=== PATIENT | female | born 1985 | race Caucasian/White ===

== ENCOUNTER 2016-09-04 10:41 | Emergency (ER) | payer MEDICAID ==
[~2016-09-04] VITALS: Ht 152.4 cm; Wt 102.0 kg
[~2016-09-04 10:41] MED LIST: CALC300T4 PO; CEPH-443 PO; HC30CR25 TOP; IBUP-1542 PO
[2016-09-04 11:03] VITALS: Ht 152.4 cm; Wt 102.0 kg
--- NOTE | 2016-09-04 12:07 | RADRPT ---
PROCEDURE: Chest Radiograph. CLINICAL INDICATION: Cough TECHNIQUE: Single frontal chest radiograph. COMPARISON: Chest radiograph 02/01/2014 FINDINGS: The cardiomediastinal silhouette is within normal limits. No infiltrate or effusion is seen. Th e bones are intact. IMPRESSION: 1. Unremarkable chest radiograph. RPTAT: KK .Keith Shepard MD, MD Date Time Electronically viewed and signed by .Keith Shepard MD, on 09/04/2016 12:06 .B/
[2016-09-04] MEDS ORDERED: CEPH-443 PO (12:38)
[2016-09-04] MEDS ORDERED: IBUP-1542 PO (12:38)
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
== END 2016-09-04 12:45 | disposition home or self-care (01) ==
LOC: FTE 10:41
DX: T22.011A Burn of unspecified degree of right forearm, initial encounter (principal); X58.XXXA Exposure to other specified factors, initial encounter; Y92.9 Unspecified place or not applicable
CPT/HCPCS: 71010; Z7502

== ENCOUNTER 2016-11-27 17:46 | Emergency (ER) | payer MEDICAID ==
[~2016-11-27] VITALS: Wt 103.0 kg
[2016-11-27] MEDS ORDERED: ACETAMINOPHEN 500 MG TAB PO STA (18:47)
[2016-11-27] MEDS ORDERED: IBUPROFEN 600 MG TAB PO ONE (19:00)
--- NOTE | 2016-11-27 19:24 | RADRPT ---
PROCEDURE: XR Chest. CLINICAL INDICATION: Cough . TECHNIQUE: Single frontal chest x-ray. COMPARISON: 09/04/2016 FINDINGS: The lungs are clear of acute infiltrates, edema, effusions, or masses.. The cardiomediastinal silho uette is unremarkable. The osseous structures are intact. IMPRESSION: No acute cardiopulmonary disease. RPTAT: RR .Arturo Martinez MD, MD Date Time Electronically viewed and signed by .Arturo Martinez MD, on 11/27/2016 19:24 .L/
[2016-11-27] MEDS ORDERED: SODI30SP2 NS (20:47)
[2016-11-27] MEDS ORDERED: LORA10TA3 PO (20:47)
[2016-11-27] MEDS ORDERED: ACET325T33 PO (20:47)
[2016-11-27] MEDS ORDERED: IBUP400T22 PO (20:47)
--- NOTE | 2016-11-27 20:53 | ERD ---
ER Documentation Chief Complaint Date/Time DATE: 11/27/16 TIME: 20:49 Chief Complaint COUGH, CONGESTION, FEVER, BODYACHES ONSET 2 DAYS HPI This is a 31-year-old female presenting to emergency department with cough, body ache, fever, nasal congestion 2 days. Patient states she has dry nonproductive cough. Patient has tactile fevers at home. Did not check her temperature with thermometer. Patient has generalized body aches. Complains of nasal congestion, rhinitis and rhinorrhea. No sore throat or difficulty swallowing. No vomiting or diarrhea. No abdominal pain. No chest pain, shortness breath or difficulty breathing. No heart palpitations. No sick contacts. ROS All systems reviewed and are negative except as per history of present illness. Medications Home Meds Active Scripts Loratadine* (Loratadine*) 10 Mg Tablet, 10 MG PO DAILY, #30 TAB Prov:ILDEFONSO CAVAZOS NP 11/27/16 Sodium Chloride (Saline Nasal [place]) 30 Ml [place], 30 ML NS BID, #1 SPRAY Prov:ILDEFONSO CAVAZOS NP 11/27/16 Ibuprofen* (Motrin*) 400 Mg Tab, 400 MG PO Q6, #30 TAB Prov:ILDEFONSO CAVAZOS NP 11/27/16 Acetaminophen* (Tylenol*) 325 Mg Tablet, 1 TAB PO Q6 Y for PAIN AND OR ELEVATED TEMP, #20 TAB Prov:ILDEFONSO CAVAZOS NP 11/27/16 Ibuprofen* (Motrin*) 600 Mg Tab, 600 MG PO Q6, #30 TAB Prov:BEATRIZ MCCORMICK PA-C 10/28/16 Ibuprofen* (Motrin*) 600 Mg Tab, 600 MG PO Q6, #30 TAB Prov:DANUTA FARMER C 09/04/16 Cephalexin* (Keflex*) 500 Mg Capsule, 500 MG PO QID for 7 Days, CAP Prov:DARIAN,DANUTA C 09/04/16 Hydrocortisone* Topical (Hydrocortisone* Topical) 2.5%-28.3 Gm Cream..g., 1 APPLIC TOP BID for 14 Days, #1 TUB Prov:RUFUS SWANSON NP 12/26/15 Calcium Carbonate* (Tums X-Str) 300 Mg Tab.chew, 300 MG PO TID Y for GASTROINTESTINAL UPSET, #30 TAB.CHEW Prov:RUFUS SWANSON NP 12/26/15 Ibuprofen* (Motrin*) 600 Mg Tab, 600 MG PO Q6H Y for PAIN AND OR ELEVATED TEMP, #30 TAB Prov:TRISTEN RICH FREEMAN JoseCarol ARCHITECTURAL PRACTICE MANAGER 09/04/15 Cephalexin* (Keflex*) 500 Mg Capsule, 500 MG PO QID for 10 Days, CAP Prov:TRISTEN RICHCarol ARCHITECTURAL PRACTICE MANAGER 09/04/15 Allergies Allergies: Coded Allergies: No Known Drug Allergy (Verified Allergy, Mild, 11/27/16) PMhx/Soc Medical and Surgical Hx: pt denies Medical Hx History of Surgery: Yes () Anesthesia Reaction: No Hx Neurological Disorder: No Hx Respiratory Disorders: No Hx Cardiac Disorders: No Hx Psychiatric Problems: No Hx Miscellaneous Medical Probl: Yes (arthritis) Hx Alcohol Use: No Hx Substance Use: No Hx Tobacco Use: No Smoking Status: Never smoker Physical Exam Vitals Vital Signs Date Time Temp Pulse Resp B/P Pulse Ox O2 Delivery O2 Flow Rate FiO2 11/27/16 17:48 100.6 107 18 133/74 98 Physical Exam Const: No acute distress, alert, Temp 100.6F with heart rate 107 bpm. Oxygen saturation 98% on room air with 18 respirations per minute. Head: Atraumatic Eyes: Normal Conjunctiva ENT: Normal External Ears, Nose and Mouth. No erythema or exudates posterior pharynx. TMs normal bilaterally. Neck: Full range of motion..~ No meningismus. Resp: Clear to auscultation bilaterally . No wheezing, rhonchi or crackles. No stridor or labored breathing. No intercostal retractions. Cardio: Regular rate and rhythm, no murmurs Abd: Soft, non tender, non distended. Normal bowel sounds Skin: No petechiae or rashes Back: No midline or flank tenderness Ext: No cyanosis, or edema Neur: Awake and alert Psych: Normal Mood and Affect Results 24 hrs Current Medications Medications (Trade) Dose Ordered Sig/Dustin Route PRN Reason Start Time Stop Time Status Last Admin Dose Admin Acetaminophen (Tylenol Tab) 500 mg ONCE STAT PO 11/27/16 18:47 11/27/16 18:49 DC 11/27/16 19:09 Ibuprofen (Motrin) 600 mg ONCE ONCE PO 11/27/16 19:00 11/27/16 19:01 DC 11/27/16 19:09 Procedures/MDM MDM: This is a 31-year-old female presenting to emergency department with cough , body aches, fever, nasal congestion 2 days. Cough is dry nonproductive. Patient has temp of 100.6F and heart rate 107 bpm upon arrival to ED. Patient' s oxygen saturation 98% on room air with respirations 18/min. No signs or symptoms of respiratory distress. Lung exam and ENT exam are unremarkable. Patient given Tylenol and Motrin p.o. while in the ED with decrease in temperature. Chest x-ray was performed and read by the radiologist as no acute findings. Influenza a and B swab is negative. Patient remains alert and oriented throughout ED visit. Appears in no acute distress. Vital signs remained stable. Low suspicion for pneumonia, pleural effusion, pneumothorax or acute [place]. Differential diagnosis includes but not limited to URI, influenza, otitis media , otitis externa, asthma exacerbation, croup, bronchitis, bronchiolitis and costochondritis. Patient is appropriate for outpatient management and will be given prescription for ibuprofen,tylenol, saline nasal spray and loratadine. Instructed patient to follow-up with primary care provider in the next 2-3 days for reassessment and additional management. Return to ED for any high fever, chest pain, difficulty breathing, shortness breath, wheezing, vomiting, diarrhea, abdominal pain or any new or worsening symptoms. Patient verbalizes understanding. All questions answered at discharge. Japanese translation use during this encounter. Disclaimer: Inadvertent spelling and grammatical errors are likely due to EHR/ dictation software use and do not reflect on the overall quality of patient care. Also, please note that the electronic time recorded on this note does not necessarily reflect the actual time of the patient encounter. Departure Diagnosis: Primary Impression: Upper respiratory infection URI type: unspecified viral URI Qualified Code: J06.9 - Viral upper respiratory tract infection Condition: Stable Patient Instructions: Uri, Viral, No Abx (Adult) Referrals: COMM[facility]ITY [facility] YOU HAVE RECEIVED A MEDICAL SCREENING EXAM AND THE RESULTS INDICATE THAT YOU DO NOT HAVE A CONDITION THAT REQUIRES URGENT TREATMENT IN THE EMERGENCY DEPARTMENT. FURTHER EVALUATION AND TREATMENT OF YOUR CONDITION CAN WAIT UNTIL YOU ARE SEEN IN YOUR DOCTORS OFFICE WITHIN THE NEXT 1-2 DAYS. IT IS YOUR RESPONSIBILITY TO MAKE AN APPOINTMENT FOR FOLOW-UP CARE. IF YOU HAVE A PRIMARY DOCTOR --you should call your primary doctor and schedule an appointment IF YOU DO NOT HAVE A PRIMARY DOCTOR YOU CAN CALL OUR PHYSICIAN REFERRAL HOTLINE AT IF YOU CAN NOT AFFORD TO SEE A PHYSICIAN YOU CAN CHOSE FROM THE FOLLOWING [facility] [address] [facility] [address] [facility] [address] [facility] [address] [facility] [address] [facility] [address] [facility]. [facility] YOU HAVE RECEIVED A MEDICAL SCREENING EXAM AND THE RESULTS INDICATE THAT YOU DO NOT HAVE A CONDITION THAT REQUIRES URGENT TREATMENT IN THE EMERGENCY DEPARTMENT. FURTHER EVALUATION AND TREATMENT OF YOUR CONDITION CAN WAIT UNTIL YOU ARE SEEN IN YOUR DOCTORS OFFICE WITHIN THE NEXT 1-2 DAYS. IT IS YOUR RESPONSIBILITY TO MAKE AN APPOINTMENT FOR FOLOW-UP CARE. IF YOU HAVE A PRIMARY DOCTOR --you should call your primary doctor and schedule and appointment IF YOU DO NOT HAVE A PRIMARY DOCTOR YOU CAN CALL OUR PHYSICIAN REFERRAL HOTLINE AT . IF YOU CAN NOT AFFORD TO SEE A PHYSICIAN YOU CAN CHOSE FROM THE FOLLOWING [facility] INSTITUTIONS: [facility] [address] [place] [address] [facility] [address] [place] [address] LOCATED WITHIN [facility] + [facility] [address] [place] [address] Additional Instructions: Call your primary care doctor TOMORROW for an appointment during the next 2-3 days.See the doctor sooner or return here if your condition worsens before your appointment time. Return to ED for any high fever, chest pain, difficulty breathing, shortness breath, wheezing, vomiting, diarrhea, abdominal pain or any new or worsening symptoms. ILDEFONSO CAVAZOS NP Nov 27, 2016 20:53
[2016-11-27 21:43] VITALS: BP 122/78; PULSE 89; RESP 20; TEMP 98.9
== END 2016-11-27 21:44 | disposition home or self-care (01) ==
LOC: FTE 17:46
DX: J06.9 Acute upper respiratory infection, unspecified (principal)
CPT/HCPCS: 71010; 87400; Z7502; Z7610

== ENCOUNTER 2017-02-19 08:04 | Emergency (ER) | payer MEDICAID ==
[~2017-02-19] VITALS: Ht 160 cm; Wt 101.0 kg
[~2017-02-19 08:04] MED LIST changes: +ACET325T33 PO; +IBUP400T22 PO; +LORA10TA3 PO; +SODI30SP2 NS
[2017-02-19 08:07] VITALS: Ht 160 cm; Wt 101.0 kg
--- NOTE | 2017-02-19 08:51 | RADRPT ---
PROCEDURE: XR Chest. CLINICAL INDICATION: Cough TECHNIQUE: Single frontal view of the chest was obtained COMPARISON: CR CHEST 09/04/2016 FINDINGS: The heart and mediastinum are within normal limits. The lungs are clear. There is no pleural effusion or pneumothorax. RPTAT: AA IMPRESSION: No acute disease. .Scout Gardner MD, MD Date Time Electronically viewed and signed by .Scout Gardner MD, on 02/19/2017 08:51 .S/
--- NOTE | 2017-02-19 09:09 | ERD ---
ER Documentation Chief Complaint Chief Complaint sore throat and b/l ear pain x 1 week HPI This is a 31-year-old female presents to the ER with a sore throat and bilateral ear pain over the last 2 weeks. Patient also has productive cough, which is worse at night. She denies any chest pain or shortness of breath. Patient states that sore throat is worse when she swallows anything, she does not have any difficulty in swallowing. Has felt warm, however does not have a thermometer at home. She denies any chills. She denies any hemoptysis. There are no sick contacts at home. ROS 12 point review of systems was done, all negative except per HPI. Medications Home Meds Active Scripts Ibuprofen* (Motrin*) 600 Mg Tab, 600 MG PO Q6, #30 TAB Prov:DANUTA FARMER 02/19/17 Penicillin V Potassium* (Penicillin V K*) 500 Mg Tab, 500 MG PO BID for 10 Days , TAB Prov:DANUTA FARMER 02/19/17 Loratadine* (Loratadine*) 10 Mg Tablet, 10 MG PO DAILY, #30 TAB Prov:ILDEFONSO CAVAZOS NP 11/27/16 Sodium Chloride (Saline Nasal [place]) 30 Ml [place], 30 ML NS BID, #1 SPRAY Prov:ILDEFONSO CAVAZOS NP 11/27/16 Ibuprofen* (Motrin*) 400 Mg Tab, 400 MG PO Q6, #30 TAB Prov:ILDEFONSO CAVAZOS NP 11/27/16 Acetaminophen* (Tylenol*) 325 Mg Tablet, 1 TAB PO Q6 Y for PAIN AND OR ELEVATED TEMP, #20 TAB Prov:ILDEFONSO CAVAZOS NP 11/27/16 Ibuprofen* (Motrin*) 600 Mg Tab, 600 MG PO Q6, #30 TAB Prov:BEATRIZ MCCORMICK PA-C 10/28/16 Ibuprofen* (Motrin*) 600 Mg Tab, 600 MG PO Q6, #30 TAB Prov:DANUTA FARMER 09/04/16 Cephalexin* (Keflex*) 500 Mg Capsule, 500 MG PO QID for 7 Days, CAP Prov:DANUTA FARMER 09/04/16 Hydrocortisone* Topical (Hydrocortisone* Topical) 2.5%-28.3 Gm Cream..g., 1 APPLIC TOP BID for 14 Days, #1 TUB Prov:RUFUS SWANSON. DECK ENGINE OPERATOR 12/26/15 Calcium Carbonate* (Tums X-Str) 300 Mg Tab.chew, 300 MG PO TID Y for GASTROINTESTINAL UPSET, #30 TAB.CHEW Prov:RUFUS SWANSON. DECK ENGINE OPERATOR 12/26/15 Ibuprofen* (Motrin*) 600 Mg Tab, 600 MG PO Q6H Y for PAIN AND OR ELEVATED TEMP, #30 TAB Prov:DAYATRISTEN BERUMEN DECK ENGINE OPERATOR 09/04/15 Cephalexin* (Keflex*) 500 Mg Capsule, 500 MG PO QID for 10 Days, CAP Prov:LAYLATRISTEN. DECK ENGINE OPERATOR 09/04/15 Allergies Allergies: Coded Allergies: No Known Drug Allergy (Verified Allergy, Mild, 02/19/17) PMhx/Soc History of Surgery: Yes () Anesthesia Reaction: No Hx Neurological Disorder: No Hx Respiratory Disorders: No Hx Cardiac Disorders: No Hx Psychiatric Problems: No Hx Miscellaneous Medical Probl: Yes (arthritis) Hx Alcohol Use: No Hx Substance Use: No Hx Tobacco Use: No Smoking Status: Never smoker Physical Exam Vitals Vital Signs Date Time Temp Pulse Resp B/P Pulse Ox O2 Delivery O2 Flow Rate FiO2 02/19/17 08:07 97.8 86 18 118/72 98 Physical Exam GENERAL: The patient is well-developed, well-nourished, in no acute distress. NECK: Cervical spine is non tender with no step off. Supple, no nuchal rigidity HEENT: Atraumatic. Pupils equal, round and reactive to light. Extraocular muscles are grossly intact. Conjunctivae pink, no discharge. Bilateral tympanic membranes are clear with no evidence of erythema, effusion or dulling of the light reflex. Tonsilar erythema with no exudates or uvular deviation. Clear rhinorrhea. RESPIRATORY: Clear to auscultation bilaterally. There are no rales, wheezes or rhonchi. HEART: Regular rate and rhythm. No murmurs, clicks, rubs or gallops. EXTREMITIES: No clubbing or cyanosis. Full range of motion. Grossly neurovascularly intact. NEUROLOGIC: Alert and oriented. Cranial nerves II through XII are intact. SKIN: There is no rash. The skin is warm and dry. Results 24 hrs [place] [id number] Radiology Main Line: [phone] DIAGNOSTIC IMAGING REPORT Patient: RAMONA GUAN : 1985 Age: 31 Sex: F MR #: [id number] DOS: 02/19/17 0000 Ordering MD: DANUTA FARMER PA-C Location: [facility] Room/Bed: PROCEDURE: XR Chest. CLINICAL INDICATION: Cough TECHNIQUE: Single frontal view of the chest was obtained COMPARISON: CR CHEST 09/04/2016 FINDINGS: The heart and mediastinum are within normal limits. The lungs are clear. There is no pleural effusion or pneumothorax. RPTAT: AA IMPRESSION: No acute disease. .Scout Gardner MD, MD Date Time Electronically viewed and signed by .Scout Gardner MD, MD on 02/19/2017 08: 51 .S/ CC: DANUTA FARMER Procedures/MDM This is a 31-year-old female presents to the ER with sore throat, bilateral ear pain and cough for the last 2 weeks. Patient does have strep pharyngitis, she will be treated with penicillin for 10 days. Suspicion for retropharyngeal or peritonsillar abscess is low, she does not have any uvular deviation or kissing tonsils. Patient is afebrile and well-appearing in the ER. She is able to tolerate p.o. fluids, she stable for outpatient follow-up. Patient is to follow -up with her primary care doctor within 1-2 days or return to ER sooner if symptoms worsen. Medical decision making shared with the patient she understands and agrees with plan. Departure Diagnosis: Primary Impression: Strep throat Condition: Stable DANUTA FARMER Feb 19, 2017 09:09
[2017-02-19] MEDS ORDERED: PENI500T PO (09:50)
[2017-02-19] MEDS ORDERED: IBUP-1542 PO (09:51)
== END 2017-02-19 10:07 | disposition home or self-care (01) ==
LOC: FTE 08:04
DX: J02.0 Streptococcal pharyngitis (principal); R05 Cough
CPT/HCPCS: 71010; 87880; Z7502

== ENCOUNTER 2017-12-30 17:18 | Emergency (ER) | END 2017-12-30 19:11 | disposition home or self-care (01) ==

== ENCOUNTER 2018-09-25 19:20 | Emergency (ER) | payer MEDICAID ==
[~2018-09-25] VITALS: Ht 152.4 cm; Wt 98.7 kg
[~2018-09-25 19:20] MED LIST changes: +BEN25 PO; +IBUP-1561 PO; -IBUP400T22 PO; +PENI500T PO; +PRED20TA PO
[2018-09-25 19:23] VITALS: Ht 152.4 cm; Wt 98.7 kg
--- NOTE | 2018-09-25 21:17 | ERD ---
ER Documentation Chief Complaint Chief Complaint abdominal pain x 2 weeks HPI History and physical exam and plan of care discussion performed via educational interpreter services This is a 33-year-old female patient presents emergency room with complaint of epigastric pain that radiates down the front of her abdomen into her bilateral pelvis x1 week. Denies any trauma or injury. No nausea, no vomiting, no constipation, no diarrhea last BM today. Denies dysuria. Denies pain related to eating, states pain is cramping pain. States walking makes pain worse resting makes pain better. Patient has history of arthritis takes Naprosyn. Pt denies any pain at time of exam. States pain is intermittent. ROS All systems reviewed and are negative except as per history of present illness. Medications Home Meds Active Scripts Diphenhydramine Hcl* (Benadryl*) 25 Mg Cap, 25 MG PO Q6, #20 CAP Prov:ADELINA PENN MD 12/30/17 Prednisone* (Prednisone*) 20 Mg Tab, 60 MG PO DAILY for 3 Days, TAB Start December 31, 2017 Prov:ADELINA PENN MD 12/30/17 Ibuprofen* (Motrin*) 600 Mg Tab, 600 MG PO Q6, #30 TAB Prov:DANUTA FARMER 02/19/17 Penicillin V Potassium* (Penicillin V K*) 500 Mg Tab, 500 MG PO BID for 10 Days, TAB Prov:DANUTA FARMER 02/19/17 Loratadine* (Loratadine*) 10 Mg Tablet, 10 MG PO DAILY, #30 TAB Prov:ILDEFONSO CAVAZOS NP 11/27/16 Sodium Chloride (Saline Nasal [place]) 30 Ml [place], 30 ML NS BID, #1 SPRAY Prov:ILDEFONSO CAVAZOS NP 11/27/16 Ibuprofen* (Motrin*) 400 Mg Tab, 400 MG PO Q6, #30 TAB Prov:ILDEFONSO CAVAZOS NP 11/27/16 Acetaminophen* (Tylenol*) 325 Mg Tablet, 1 TAB PO Q6 PRN for PAIN AND OR ELEVATED TEMP, #20 TAB Prov:ILDEFONSO CAVAZOS NP 11/27/16 Ibuprofen* (Motrin*) 600 Mg Tab, 600 MG PO Q6, #30 TAB Prov:BEATRIZ MCCORMICK PA-C 10/28/16 Ibuprofen* (Motrin*) 600 Mg Tab, 600 MG PO Q6, #30 TAB Prov:DANUTA FARMER C 09/04/16 Cephalexin* (Keflex*) 500 Mg Capsule, 500 MG PO QID for 7 Days, CAP Prov:ELISSA FARMERNA C 09/04/16 Hydrocortisone* Topical (Hydrocortisone* Topical) 2.5%-28.3 Gm Cream..g., 1 APPLIC TOP BID for 14 Days, #1 TUB Prov:SKYRUFUS X. COUNTER POCKET TRIMMER 12/26/15 Calcium Carbonate* (Tums X-Str) 300 Mg Tab.chew, 300 MG PO TID PRN for GASTROINTESTINAL UPSET, #30 TAB.CHEW Prov:RUFUS SWANSON. COUNTER POCKET TRIMMER 12/26/15 Ibuprofen* (Motrin*) 600 Mg Tab, 600 MG PO Q6H PRN for PAIN AND OR ELEVATED TEMP, #30 TAB Prov:TRISTEN RICH [employer] POCKET TRIMMER 09/04/15 Cephalexin* (Keflex*) 500 Mg Capsule, 500 MG PO QID for 10 Days, CAP Prov:TRISTEN RICH [employer] POCKET TRIMMER 09/04/15 Allergies Allergies: Coded Allergies: No Known Drug Allergy (Verified Allergy, Mild, 02/19/17) PMhx/Soc History of Surgery: Yes (caesarian section) Anesthesia Reaction: No Hx Neurological Disorder: No Hx Respiratory Disorders: No Hx Cardiac Disorders: No Hx Psychiatric Problems: No Hx Miscellaneous Medical Probl: Yes (arthritis) Hx Alcohol Use: No Hx Substance Use: No Hx Tobacco Use: No Smoking Status: Never smoker FmHx Family History: diabetes; No coronary disease, No other Physical Exam Vitals Vital Signs Date Temp Pulse Resp B/P (MAP) Pulse Ox O2 O2 Flow FiO2 Time Delivery Rate 09/26/18 98.4 71 18 116/69 99 Room Air 00:26 (85) 09/25/18 97.7 94 18 147/69 100 19:23 (95) Physical Exam Const: No acute distress Head: Atraumatic Eyes: Normal Conjunctiva ENT: Normal External Ears, Nose and Mouth. Pharynx pink, moist, no lesions or exudate Neck: Full range of motion. No meningismus. No lymphadenopathy Resp: Clear to auscultation bilaterally Cardio: Regular rate and rhythm, no murmurs Abd: Soft, non distended. Normal bowel sounds. Mild tenderness at RLQ and RUQ, negative Sanchez's, negative psoas, negative McBurney. No epigstric tenderness. Skin: No petechiae or rashes Back: No midline or flank tenderness, FROM Ext: No cyanosis, or edema Neur: Awake and alert Psych: Normal Mood and Affect Result Diagram: 09/25/18212109/25/182121 Results 24 hrs Laboratory Tests Test 09/25/18 21:22 White Blood Count 9.1 10^3/ul Red Blood Count 4.43 10^6/ul Hemoglobin 13.2 g/dl Hematocrit 39.7 % Mean Corpuscular Volume 89.6 fl Mean Corpuscular Hemoglobin 29.8 pg Mean Corpuscular Hemoglobin Concent 33.2 g/dl Red Cell Distribution Width 13.0 % Platelet Count 369 10^3/UL Mean Platelet Volume 8.9 fl Immature Granulocytes % 0.300 % Neutrophils % 59.5 % Lymphocytes % 30.9 % Monocytes % 6.9 % Eosinophils % 2.2 % Basophils % 0.2 % Nucleated Red Blood Cells % 0.0 /100WBC Immature Granulocytes # 0.030 10^3/ul Neutrophils # 5.4 10^3/ul Lymphocytes # 2.8 10^3/ul Monocytes # 0.6 10^3/ul Eosinophils # 0.2 10^3/ul Basophils # 0.0 10^3/ul Nucleated Red Blood Cells # 0.0 10^3/ul Urine Color YELLOW Urine Clarity SLIGHTLY CLOUDY Urine pH 6.0 Urine Specific [place] 1.027 Urine Ketones NEGATIVE mg/dL Urine Nitrite NEGATIVE mg/dL Urine Bilirubin NEGATIVE mg/dL Urine Urobilinogen NEGATIVE mg/dL Urine Leukocyte Esterase NEGATIVE [place]/ul Urine Microscopic RBC 2 /HPF Urine Microscopic WBC 2 /HPF Urine Squamous Epithelial Cells FEW /HPF Urine Mucus MODERATE /HPF Urine Hemoglobin NEGATIVE mg/dL Urine Glucose NEGATIVE mg/dL Urine Total Protein NEGATIVE mg/dl Sodium Level 143 mmol/L Potassium Level 4.2 mmol/L Chloride Level 105 mmol/L Carbon Dioxide Level 29 mmol/L Anion Gap 9 Blood Urea Nitrogen 13 mg/dl Creatinine 0.80 mg/dl Est Glomerular Filtrat Rate mL/min > 60 mL/min Glucose Level 100 mg/dl Calcium Level 10.0 mg/dl Total Bilirubin 0.4 mg/dl Direct Bilirubin 0.00 mg/dl Indirect Bilirubin 0.4 mg/dl Aspartate Amino Transf (AST/SGOT) 21 IU/L Alanine Aminotransferase (ALT/SGPT) 28 IU/L Alkaline Phosphatase 64 IU/L Total Protein 8.8 g/dl Albumin 4.5 g/dl Globulin 4.30 g/dl Albumin/Globulin Ratio 1.04 Lipase 43 U/L Serum HCG, Qualitative NEGATIVE Procedures/MDM PROCEDURES/MDM LAB INTERPRETATION: No leukocytosis, no electrolyte disturbance, normal kidney function, no transaminitis, normal lipase. BHcg neg. No UTI. No hematuria. -Medications: No pain, no nausea, no dyspepsia MDM: This is a 33 yo female patient who presents to the ER with c/o intermittent abdominal pain that she states starts in her stomach, travels down the front of her stomach and then radiates into RLQ/LLQ. This pain is intermittent and absent at time of exam. No other symptoms such as nausea, vomiting, constipation, diarrhea, acid reflux. Pain is not related to eating, bowel movements, or urination. Pain is not debilitating and she does not take medications for it. Med hx of arthritis for which she occasionally takes Naprosyn. No radiological i mages today as patient is free of pain at time of exam. No medications indicated. Blood work drawn to look for signs of occult infection, pancreatitis, transaminitis, UTI, . Physical exam and diagnostic work-up do not indicate appendicitis, cholecystitis, diverticulitis, PUD, peritonitis or other life-threatening or serious etiology. The patient presents with abdominal pain without definite explanation found on evaluation today. The patient appears stable for discharge and has been instructed to return immediately if the symptoms worsen in any way. Patient has been instructed on increasing hydration, fiber, and physical activity and to avoid spicy and fatty foods that can cause indigestion. Patient has been instructed to follow up with her PMD for continued assessment of symptoms and possible referral to GI. DISPOSITION and PLAN: RX: none The patient has been discharge home to follow-up with community physician. Departure Diagnosis: Primary Impression: Abdominal pain Abdominal location: generalized Qualified Codes: R10.84 - Generalized abdominal pain Condition: Stable RODY EARL NP Sep 25, 2018 21:17
[2018-09-26 00:26] VITALS: BP 116/69; PULSE 71; RESP 18
== END 2018-09-26 00:27 | disposition home or self-care (01) ==
LOC: FTE 19:20
DX: R10.84 Generalized abdominal pain (principal)
CPT/HCPCS: 80053; 81001; 81003; 83690; 84703; 85025